=== PATIENT | female | born 1960 | race Caucasian/White ===

== ENCOUNTER 2018-02-10 15:30 | Outpatient (CLI) | payer BC ==
--- NOTE | 2018-02-11 10:21 | MRI ---
MRI LEFT KNEE WITHOUT CONTRAST: INDICATIONS: Chronic left knee pain for many years. The patient has had worsening pain with utilization of stairs and with bicycling. The pain is reportedly felt most medially and is tender to palpation. COMPARISON: None. TECHNIQUE: Routine MR images were obtained in the left knee without contrast. FINDINGS: No large joint effusion is evident. No popliteal cyst is identified. Bone marrow signal intensity appears within normal limits. The articular cartilage of the femorotibial and patellofemoral compartments is relatively well preser diego. The medial and lateral menisci are intact. The ACL, PCL, MCL, and LCLC are intact. The extensor mechanism is intact. IMPRESSION: No acute abnormality demonstrated. POS: [facility]
--- NOTE | 2018-02-11 10:23 | MRI ---
MRI RIGHT KNEE WITHOUT CONTRAST: INDICATIONS: Chronic right knee pain for many years. The patient is having worsening knee pain with utilization o f stairs and with bicycling. The pain is predominantly medial and is tender to palpation. COMPARISON: None. FINDINGS: The medial and lateral menisci are intact. The articular cartilage of the femorotibial and patellofemoral compartments appears relatively well p reserved. There is a bipartite patella present. This is a normal variant. The ACL, PCL, MCL, and LCLC are intact. The extensor mechanism is intact. Bone marrow signal intensity appears within normal limits. IMPRESSION: 1. No acute abnormality. 2. Bipartite patella. POS: [facility]
== END 2018-02-10 15:31 | disposition home or self-care (01) ==
LOC: SCSMRI 15:30
PROVIDERS: ATTEND Chiropractor
DX: M25.561 Pain in right knee (principal); Q74.1 Congenital malformation of knee

== ENCOUNTER 2018-05-11 09:28 | Outpatient (CLI) | payer BC | END 2018-05-11 09:29 | disposition home or self-care (01) | LOC: BICMAMMO 09:28 | PROVIDERS: ATTEND Family Medicine | DX: Z12.31 Encounter for screening mammogram for malignant neoplasm of breast (principal); R92.1 Mammographic calcification found on diagnostic imaging of breast; Z80.3 Family history of malignant neoplasm of breast | CPT/HCPCS: 77063; 77067 ==

== ENCOUNTER 2018-10-02 20:30 | Outpatient (CLI) | payer BC | END 2018-10-02 20:31 | disposition home or self-care (01) | LOC: SLEEPLAB 20:30 | PROVIDERS: ATTEND Family Medicine | DX: G47.33 Obstructive sleep apnea (adult) (pediatric) (principal); G47.10 Hypersomnia, unspecified; F51.9 Sleep disorder not due to a substance or known physiological condition, unspecified; G47.9 Sleep disorder, unspecified; R53.83 Other fatigue; R06.83 Snoring; G47.00 Insomnia, unspecified; I10 Essential (primary) hypertension | CPT/HCPCS: 95811 ==

== ENCOUNTER 2020-06-07 10:01 | Outpatient (CLI) | payer BC ==
--- NOTE | 2020-06-07 10:58 | MMO ---
Bilateral MAMMO Bilat Screen [facility]. CLINICAL HISTORY: Patient is 60 years old and is seen for screening. The patient has the following family history of breast cancer: maternal grandmother and paternal aunt. The patient has no personal history of cancer. VIEWS: The views performed were: bilateral craniocaudal with tomosynthesis and bilateral mediolateral oblique with tomosynthesis. FILMS COMPARED: The present examination has been compared to a prior imaging study performed at [facility] on 05/11/2018. This study has been interpreted with the assistance of computer-aided detection. MAMMOGRAM FINDINGS: There are scattered fibroglandular densities. There are stable benign appearing calcifications seen in both breasts. There are no suspicious masses, suspicious calcifications, or new areas of architectural distortion. IMPRESSION: THERE IS NO MAMMOGRAPHIC EVIDENCE OF MALIGNANCY. A ROUTINE FOLLOW-UP MAMMOGRAM IN 1 YEAR IS RECOMMENDED. THE RESULTS OF THIS EXAM WERE SENT TO THE PATIENT. ACR BI-RADS Category 2 - Benign finding MAMMOGRAPHY NOTE: 1. A negative mammogram report should not delay a biopsy if a dominant of clinically suspicious mass is present. 2. Approximately 10% to 15% of breast cancers are not detected by mammography. 3. Adenosis and dense breasts may obscure an underlying neoplasm. Reported by: CAMILA JUAREZ MD Electonically Signed: [id number]
== END 2020-06-07 10:02 | disposition home or self-care (01) ==
LOC: BICMAMMO 10:01
PROVIDERS: ATTEND Family Medicine
DX: Z12.31 Encounter for screening mammogram for malignant neoplasm of breast (principal); Z80.3 Family history of malignant neoplasm of breast
CPT/HCPCS: 77063; 77067

== ENCOUNTER 2020-12-25 10:00 | Outpatient (CLI) | payer OTHER | END 2020-12-25 10:01 | disposition home or self-care (01) | LOC: BICRAD 10:00 | PROVIDERS: ATTEND Internal Medicine | DX: Z02.71 Encounter for disability determination (principal); M47.812 Spondylosis without myelopathy or radiculopathy, cervical region; M50.321 Other cervical disc degeneration at C4-C5 level | CPT/HCPCS: 72040 ==

== ENCOUNTER 2023-07-18 10:56 | Outpatient (CLI) | payer MEDICARE, BC | END 2023-07-18 10:57 | disposition home or self-care (01) | LOC: DTY/OP 10:56 | PROVIDERS: ATTEND Family Medicine | DX: E11.9 Type 2 diabetes mellitus without complications (principal); Z71.3 Dietary counseling and surveillance | CPT/HCPCS: 97802 ==

== ENCOUNTER 2023-08-28 08:15 | Outpatient (CLI) | payer MEDICARE, BC | END 2023-08-28 08:16 | disposition home or self-care (01) | LOC: BICULT 08:15 | PROVIDERS: ATTEND Internal Medicine | DX: R10.11 Right upper quadrant pain (principal); K80.20 Calculus of gallbladder without cholecystitis without obstruction; K76.0 Fatty (change of) liver, not elsewhere classified; R13.10 Dysphagia, unspecified; R93.2 Abnormal findings on diagnostic imaging of liver and biliary tract | CPT/HCPCS: 76700 ==

== ENCOUNTER 2023-09-10 16:00 | Outpatient (CLI) | payer MEDICARE, BC | END 2023-09-10 16:01 | disposition home or self-care (01) | LOC: SLEEPLAB 16:00 | PROVIDERS: ATTEND Family Medicine | DX: G47.33 Obstructive sleep apnea (adult) (pediatric) (principal); R53.83 Other fatigue; G47.10 Hypersomnia, unspecified; E66.9 Obesity, unspecified; R06.83 Snoring; I10 Essential (primary) hypertension; E11.9 Type 2 diabetes mellitus without complications; M79.7 Fibromyalgia; G43.909 Migraine, unspecified, not intractable, without status migrainosus; F41.8 Other specified anxiety disorders; M54.30 Sciatica, unspecified side; G47.61 Periodic limb movement disorder; Z68.32 Body mass index [BMI] 32.0-32.9, adult | CPT/HCPCS: 95810 ==